=== PATIENT | male | born 1995 | race Two or more races ===

== ENCOUNTER 2020-03-05 10:43 | Emergency (ER) | payer OTHER ==
[~2020-03-05] VITALS: Ht 167.6 cm; Wt 59.0 kg
--- NOTE | 2020-03-05 12:26 | RAD ---
EXAM: CHEST AP ONLY INDICATION: Reason: SOA / Spl. Instructions: / History: . TECHNIQUE: Single view COMPARISON: None FINDINGS: The heart size is normal. The great vessels appear unremarkable. There is no hilar or mediastinal mass. The lungs are clear. There is no pleural effusion or pneumothorax. There are no significant osseous abnormalities. IMPRESSION: No active cardiopulmonary disease. Electronically signed by: Trevor Flynn MD (03/05/2020 12:23 PM) [id number]
[2020-03-05 12:27] LABS: BASO % 0 % (0-3); EOS # 0.2 x10^3/uL (0.0-0.7); EOS % 3 % (0-3); HEMATOCRIT 44.3 % (39.0-53.0); HEMOGLOBIN 14.9 g/dL (13.0-17.5); LYMPH # 2.1 x10^3/uL (1.0-4.8); LYMPH % 38 % (24-48); MEAN CORPUSCULAR HEMOGLOBIN 28 pg (25-35); MEAN CORPUSCULAR HGB CONC 34 g/dL (31-37); MEAN CORPUSCULAR VOLUME 82 fL (79-100); MONO # 0.4 x10^3/uL (0.0-1.1); MONO % 7 % (0-9); NEUT # 2.8 x10^3/uL (1.8-7.7); NEUT % 51 % (31-73); PLATELET COUNT 104 x10^3/uL (140-400); RED BLOOD COUNT 5.39 x10^6/uL (4.30-5.70); RED CELL DISTRIBUTION WIDTH 13.3 % (11.5-14.5); WHITE BLOOD COUNT 5.5 x10^3/uL (4.0-11.0)
[2020-03-05 12:54] LABS: CREATININE 0.7 mg/dL (0.7-1.3); POTASSIUM 3.7 mmol/L (3.5-5.1)
[2020-03-05 13:00] VITALS: BP 114/75
[2020-03-05 13:00] LABS: ALBUMIN 3.8 g/dL (3.4-5.0); DIRECT BILIRUBIN 0.1 mg/dL (0.0-0.2); TOTAL BILIRUBIN 0.6 mg/dL (0.2-1.0); TOTAL PROTEIN 7.6 g/dL (6.4-8.2)
--- NOTE | 2020-03-05 13:33 | PHYS DOC ---
Past Medical History Past Medical History: No Pertinent History Past Surgical History: No Surgical History Smoking Status: Never Smoker Alcohol Use: None General Adult EDM: Chief Complaint: FEVER HPI: HPI: 24-year-old gentleman presents emergency department today with cough fever chest pain intermittently and sore throat. He said body aches for 5 days. He was tested last month and negative for COVID-19. His pain is a sharp shooting pain which is worse when coughing and improved with rest. He denies any vomiting. He denies abdominal pain. He denies neck stiffness or nuchal rigidity. Review of systems is negative for shortness of breath. Positive for fever. Positive for cough. Positive for intermittent chest pain but currently does not have chest pain. All other review of systems negative. ED course: 24-year-old male presenting with fever cough chest pain. EKG obtained and reviewed by myself shows sinus rhythm with a regular rate. ST segments congruent. Not suggestive of ACS. Chest x-ray and blood work is unremarkable. COVID testing sent. We will have the patient quarantine at home pending his tesT. He is breathing comfortably on room air satting 100%. Patient was then discharged. Heart Score: Risk Factors: Risk Factors: DM, Current or recent (<one month) smoker, HTN, HLP, family history of CAD, obesity. Risk Scores: Score 0 - 3: 2.5% MACE over next 6 weeks - Discharge Home Score 4 - 6: 20.3% MACE over next 6 weeks - Admit for Clinical Observation Score 7 - 10: 72.7% MACE over next 6 weeks - Early Invasive Strategies Physical Exam: PE: Constitutional: Well developed, well nourished, no acute distress, non-toxic appearance. [] HENT: Normocephalic, atraumatic, bilateral external ears normal, oropharynx moist, no oral exudates, nose normal. [] Eyes: PERRLA, EOMI, conjunctiva normal, no discharge. [] Neck: Normal range of motion, no tenderness, supple, no stridor. [] Cardiovascular:Heart rate regular rhythm, no murmur [] Lungs & Thorax: Bilateral breath sounds clear to auscultation [] Abdomen: Bowel sounds normal, soft, no tenderness, no masses, no pulsatile masses. [] Skin: Warm, dry, no erythema, no rash. [] Back: No tenderness, no CVA tenderness. [] Extremities: No tenderness, no cyanosis, no clubbing, ROM intact, no edema. [] Neurologic: Alert and oriented X 3, normal motor function, normal sensory function, no focal deficits noted. [] Psychologic: Affect normal, judgement normal, mood normal. [] Current Patient Data: Labs: Laboratory Tests Test 03/05/20 12:00 White Blood Count 5.5 x10^3/uL (4.0-11.0) Red Blood Count 5.39 x10^6/uL (4.30-5.70) Hemoglobin 14.9 g/dL (13.0-17.5) Hematocrit 44.3 % (39.0-53.0) Mean Corpuscular Volume 82 fL (79-100) Mean Corpuscular Hemoglobin 28 pg (25-35) Mean Corpuscular Hemoglobin Concent 34 g/dL (31-37) Red Cell Distribution Width 13.3 % (11.5-14.5) Platelet Count 104 x10^3/uL (140-400) L Neutrophils (%) (Auto) 51 % (31-73) Lymphocytes (%) (Auto) 38 % (24-48) Monocytes (%) (Auto) 7 % (0-9) Eosinophils (%) (Auto) 3 % (0-3) Basophils (%) (Auto) 0 % (0-3) Neutrophils # (Auto) 2.8 x10^3/uL (1.8-7.7) Lymphocytes # (Auto) 2.1 x10^3/uL (1.0-4.8) Monocytes # (Auto) 0.4 x10^3/uL (0.0-1.1) Eosinophils # (Auto) 0.2 x10^3/uL (0.0-0.7) Basophils # (Auto) 0.0 x10^3/uL (0.0-0.2) Sodium Level 140 mmol/L (136-145) Potassium Level 3.7 mmol/L (3.5-5.1) Chloride Level 102 mmol/L (98-107) Carbon Dioxide Level 30 mmol/L (21-32) Anion Gap 8 (6-14) Blood Urea Nitrogen 9 mg/dL (8-26) Creatinine 0.7 mg/dL (0.7-1.3) Estimated GFR (Cockcroft-Gault) 141.0 Glucose Level 101 mg/dL (70-99) H Calcium Level 9.0 mg/dL (8.5-10.1) Total Bilirubin 0.6 mg/dL (0.2-1.0) Direct Bilirubin 0.1 mg/dL (0.0-0.2) Aspartate Amino Transferase (AST) 14 U/L (15-37) L Alanine Aminotransferase (ALT) 16 U/L (16-63) Alkaline Phosphatase 70 U/L (46-116) Troponin I Quantitative < 0.017 ng/mL (0.000-0.055) Total Protein 7.6 g/dL (6.4-8.2) Albumin 3.8 g/dL (3.4-5.0) Lipase 57 U/L (73-393) L Laboratory Tests 03/05/20 12:00 Laboratory Tests 03/05/20 12:00 Vital Signs: Vital Signs Date Time Temp Pulse Resp B/P (MAP) Pulse Ox O2 Delivery O2 Flow Rate FiO2 03/05/20 11:08 99.1 68 16 121/67 (85) 100 Room Air 99.1 EKG: EKG: [] Radiology/Procedures: Radiology/Procedures: [] Course & Med Decision Making: Course & Med Decision Making Pertinent Labs and Imaging studies reviewed. (See chart for details) [] Dragon Disclaimer: Dragon Disclaimer: This electronic medical record was generated, in whole or in part, using a voice recognition dictation system. Departure Departure Impression: Primary Impression: Cough Additional Impressions: Fever Sore throat Disposition: 01 HOME, SELF-CARE Condition: STABLE Referrals: NO PCP (PCP) Patient Instructions: Cough, Adult, Fever Additional Instructions: Thank you for visiting [facility]. We appreciate you trusting us with your care. If any additional problems come up please don't hesitate to return to visit us. Follow up with your primary care provider so they can plan additional care if needed and know about the problem that you had today. If symptoms worsen come back to the Emergency Department. Any concerning symptoms that start such as chest pain, shortness of air, weakness or numbness on one side of the body, running high fevers or any other concerning symptoms return to the ER. You have a viral syndrome which may include symptoms like muscle aches, fevers, chills, runny nose, cough, sneezing, sore throat, nausea, vomiting, or diarrhea. One of the potential viruses that you may have is SARS-CoV-2, the virus that causes COVID-19, also known as the Coronavirus. You could also have a different viral infection such as the common cold, flu, etc. Most patients with the Coronavirus have mild symptoms and recover on their own. Resting, staying hydrated, and sleep based on known cases can be helpful. As of todays visit, you are well enough to go home and treat your symptoms with oral fluids and over the counter medications. Please follow the following precautions at home: 1) Stay home except to get medical care. 2) As advised by the CDC, we recommend that you stay in your home and minimize contact with other people. We do not want you to spread the infection. 3) Those who are older or have significant medical issues may have more severe symptoms from this infection. We recommend self-isolation FOR AT LEAST 7 DAYS after your 1st day of symptoms. AFTER you feel better please wait AT LEAST ANOTHER 3 days before returning to regular activities and being around other people. 4) IF you become sicker and have difficulty breathing, chest pain, are unable to eat/drink, severe vomiting, diarrhea, or weakness you may need to return to the Emergency Department. 5) You should restrict activities outside of your home, except for getting medical care. DO NOT go to work, school, or public areas. Avoid using public transportation, ride sharing, or taxis. 6) Separate yourself from other people in your home. You should use a separate bathroom if possible. 7) Avoid sharing personal household items such as dishes, cups, eating utensils, towels, etc. 8) Clean all high touch surfaces every day (door knobs, counter tops, etc). Use a household cleaning spray or wipe per label instructions. 9) Clean your hands often. Wash your hands with soap and water for at least 20 seconds. 10) Cover your mouth and nose when you cough or sneeze. 11) Throw used tissues in the trash and immediately wash your hands. For additional resources please visit the CDC website or the [facility] ([phone]), you may also call 311 for further information. Justicifation of Admission Dx: Justifications for Admission: Justification of Admission Dx: N/A LUZ ELENA GARDNER MD Mar 05, 2020 13:33
--- NOTE | 2020-03-05 14:32 | EKG ---
[facility] [address] [place] [address] Test Date: 2020-03-05 Test Time: 12:04:44 Pat Name: WILLIAMS BLAKELY Department: Room: Gender: M Heel Seater: [id number] : 1995 Requested By: LUZ ELENA GARDNER Order Number: [id number] Reading MD: Measurements Intervals [place] Rate: 58 P: 53 [place]: 168 QRS: 62 QRSD: 96 T: 46 QT: 374 QTc: 367 Interpretive Statements SINUS RHYTHM NORMAL ECG RI6.01 No previous ECG available for comparison
== END 2020-03-05 13:49 | disposition home or self-care (01) ==
LOC: ER 10:43
DX: R05 Cough (principal); Z20.828 Contact with and (suspected) exposure to other viral communicable diseases; R50.9 Fever, unspecified; J02.9 Acute pharyngitis, unspecified; R07.89 Other chest pain
CPT/HCPCS: 36415; 71045; 80048; 80076; 83690; 84484; 85025; 85379; 93005; 99285; U0003

== ENCOUNTER 2020-09-18 15:46 | Emergency (ER) | payer OTHER ==
[~2020-09-18] VITALS: Ht 172.7 cm; Wt 57.1 kg
--- NOTE | 2020-09-18 16:12 | ED.ADGEN ---
Past Medical History Past Medical History: No Pertinent History Past Surgical History: No Surgical History Smoking Status: Never Smoker Alcohol Use: None General Adult EDM: Chief Complaint: CHEST PAIN HPI: HPI: Patient is a 25 year old male coming in for substernal chest pain starting 6 days ago. Patient states pain is sharp and worse with palpation taking a deep breath. Denies any associated symptoms. Denies any traumas or heavy lifting. Denies any tobacco or drug use. Denies any GERD symptoms. States he otherwise has been well and and has no significant personal or family medical history Review of Systems: Review of Systems: All other systems within normal limits except for as noted in the HPI Allergies: Allergies: Allergies Coded Allergies Type Severity Reaction Last Updated Verified No Known Drug Allergies 09/18/20 No Physical Exam: PE: Constitutional: Well developed, well nourished, no acute distress, non-toxic appearance. [] HENT: Normocephalic, atraumatic, bilateral external ears normal, nose normal. [] Eyes: PERRLA, conjunctiva normal, no discharge. [] Neck: No rigidity, supple, no stridor. [] Cardiovascular: Regular rate and rhythm, brisk cap refill, symmetric radial pulses [] Lungs & Thorax: Non labored symmetric respirations, no tachypnea or respiratory distress. Sternal chest wall tenderness, no deformity or crepitus [] Abdomen: Soft, nondistended. Skin: Warm, dry, no erythema, no rash. [] Back: Unremarkable Extremities: No deformities, range of motion grossly intact, no lower extremity edema [] Neurologic: Alert and oriented X 3, no focal deficits noted. [] Psychologic: Affect normal, judgement normal, mood normal. [] Current Patient Data: Labs: Laboratory Tests Test 09/18/20 16:36 White Blood Count 3.8 x10^3/uL (4.0-11.0) L Red Blood Count 5.30 x10^6/uL (4.30-5.70) Hemoglobin 14.9 g/dL (13.0-17.5) Hematocrit 43.9 % (39.0-53.0) Mean Corpuscular Volume 83 fL (79-100) Mean Corpuscular Hemoglobin 28 pg (25-35) Mean Corpuscular Hemoglobin Concent 34 g/dL (31-37) Red Cell Distribution Width 13.0 % (11.5-14.5) Platelet Count 100 x10^3/uL (140-400) L Neutrophils (%) (Auto) 41 % (31-73) Lymphocytes (%) (Auto) 48 % (24-48) Monocytes (%) (Auto) 8 % (0-9) Eosinophils (%) (Auto) 3 % (0-3) Basophils (%) (Auto) 1 % (0-3) Neutrophils # (Auto) 1.6 x10^3/uL (1.8-7.7) L Lymphocytes # (Auto) 1.8 x10^3/uL (1.0-4.8) Monocytes # (Auto) 0.3 x10^3/uL (0.0-1.1) Eosinophils # (Auto) 0.1 x10^3/uL (0.0-0.7) Basophils # (Auto) 0.0 x10^3/uL (0.0-0.2) D-Dimer (Kenyatta) < 0.27 ug/mlFEU Sodium Level 144 mmol/L (136-145) Potassium Level 3.6 mmol/L (3.5-5.1) Chloride Level 104 mmol/L (98-107) Carbon Dioxide Level 28 mmol/L (21-32) Anion Gap 12 (6-14) Blood Urea Nitrogen 10 mg/dL (8-26) Creatinine 0.8 mg/dL (0.7-1.3) Estimated GFR (Cockcroft-Gault) 119.8 BUN/Creatinine Ratio 13 (6-20) Glucose Level 96 mg/dL (70-99) Calcium Level 9.2 mg/dL (8.5-10.1) Total Bilirubin 0.6 mg/dL (0.2-1.0) Aspartate Amino Transferase (AST) 20 U/L (15-37) Alanine Aminotransferase (ALT) 30 U/L (16-63) Alkaline Phosphatase 57 U/L (46-116) Troponin I Quantitative < 0.017 ng/mL (0.000-0.055) Total Protein 7.5 g/dL (6.4-8.2) Albumin 4.1 g/dL (3.4-5.0) Albumin/Globulin Ratio 1.2 (1.0-1.7) Laboratory Tests 09/18/20 16:36 Laboratory Tests 09/18/20 16:36 Vital Signs: Vital Signs Date Time Temp Pulse Resp B/P (MAP) Pulse Ox O2 Delivery O2 Flow Rate FiO2 09/18/20 15:50 98.3 67 16 116/60 (78) 98 Room Air 98.3 EKG: EKG: us rhythm, heart rate 64 bpm, 1 PVC, no ST elevation depression, normal axis, normal intervals.[] Heart Score: Risk Factors: Risk Factors: DM, Current or recent (<one month) smoker, HTN, HLP, family history of CAD, obesity. Risk Scores: Score 0 - 3: 2.5% MACE over next 6 weeks - Discharge Home Score 4 - 6: 20.3% MACE over next 6 weeks - Admit for Clinical Observation Score 7 - 10: 72.7% MACE over next 6 weeks - Early Invasive Strategies Radiology/Procedures: Radiology/Procedures: [] Course & Med Decision Making: Course & Med Decision Making Pertinent Labs and Imaging studies reviewed. (See chart for details) [] Dragon Disclaimer: Dragon Disclaimer: This electronic medical record was generated, in whole or in part, using a voice recognition dictation system. Departure Departure Impression: Primary Impression: Acute costochondritis Disposition: 01 DC HOME SELF CARE/HOMELESS Condition: STABLE Referrals: NO PCP (PCP) Patient Instructions: Chest Wall Pain Additional Instructions: [facility] [address] [place] [address] [facility] [address] [place] [address] [facility] [address] [facility] [address] [facility] [address] [place] [address] [facility] [address] [place] [address] [address] [place] [address] [address] [place] [place] [address] [facility] [address] [place] [address] [facility] [address] [place] [address] [facility] [address] [place] [address] Scripts Ibuprofen (IBUPROFEN) 800 Mg Tablet 800 MG PO PRN Q8HRS PRN for INFLAMMATION for 10 Days, #20 TAB Prov: YANDEL HOLLIS MD 09/18/20 YANDEL HOLLIS MD Sep 18, 2020 16:12
--- NOTE | 2020-09-18 16:47 | RAD ---
XR CHEST 2V Technique: PA and lateral views of the chest were obtained. Clinical History: Reason: chest pain / Spl. Instructions: / History: Comparison: None. Findings: The heart and pulmonary vasculature appear within normal limits. The lungs are clear. The pleural ma rgins are clear. Impression: No acute chest process is seen. Electronically signed by: Abdias Castro III, MD (09/18/2020 4:45 PM) [facility]
[2020-09-18 16:53] LABS: BASO % 1 % (0-3); EOS # 0.1 x10^3/uL (0.0-0.7); EOS % 3 % (0-3); HEMATOCRIT 43.9 % (39.0-53.0); HEMOGLOBIN 14.9 g/dL (13.0-17.5); LYMPH # 1.8 x10^3/uL (1.0-4.8); LYMPH % 48 % (24-48); MEAN CORPUSCULAR HEMOGLOBIN 28 pg (25-35); MEAN CORPUSCULAR HGB CONC 34 g/dL (31-37); MEAN CORPUSCULAR VOLUME 83 fL (79-100); MONO # 0.3 x10^3/uL (0.0-1.1); MONO % 8 % (0-9); NEUT # 1.6 x10^3/uL (1.8-7.7); NEUT % 41 % (31-73); PLATELET COUNT 100 x10^3/uL (140-400); WHITE BLOOD COUNT 3.8 x10^3/uL (4.0-11.0)
[2020-09-18 17:07] LABS: CALCIUM 9.2 mg/dL (8.5-10.1); CREATININE 0.8 mg/dL (0.7-1.3); GFR 119.8; POTASSIUM 3.6 mmol/L (3.5-5.1)
[2020-09-18 17:18] LABS: ALBUMIN 4.1 g/dL (3.4-5.0); ALBUMIN/GLOBULIN RATIO 1.2 (1.0-1.7); TOTAL BILIRUBIN 0.6 mg/dL (0.2-1.0); TOTAL PROTEIN 7.5 g/dL (6.4-8.2)
[2020-09-18] MEDS ORDERED: IBUP-1060 PO (17:38)
[2020-09-18 18:00] VITALS: BP 120/70
--- NOTE | 2020-09-18 19:07 | EKG ---
[facility] [address] [place] [address] Test Date: 2020-09-18 Test Time: 15:54:28 Pat Name: WILLIAMS BLAKELY Department: Room: Gender: M Records Manager: : 1995 Requested By: YANDEL HOLLIS Order Number: [id number] Reading MD: Measurements Intervals [place] Rate: 64 P: 54 [place]: 162 QRS: 75 QRSD: 98 T: 60 QT: 360 QTc: 375 Interpretive Statements SINUS RHYTHM VENTRICULAR PREMATURE COMPLEX(ES) ABNORMAL ECG RI6.02 No previous ECG available for comparison
== END 2020-09-18 18:14 | disposition home or self-care (01) ==
LOC: ER 15:46
DX: M94.0 Chondrocostal junction syndrome [Tietze] (principal)
CPT/HCPCS: 36415; 71046; 80053; 84484; 85025; 85379; 93005; 99285-25